=== PATIENT | female | born 2000 | race Hispanic/Latino ===

== ENCOUNTER 2022-10-18 08:07 | Outpatient (CLI) | payer OTHER | END 2022-10-18 08:08 | disposition home or self-care (01) | LOC: CSHLAB 08:07 | PROVIDERS: ATTEND Obstetrics & Gynecology | DX: Z01.812 Encounter for preprocedural laboratory examination (principal); N90.60 Unspecified hypertrophy of vulva | CPT/HCPCS: 84703; 85027; 86850; 86900; 86901 ==

== ENCOUNTER 2022-10-19 10:33 | Day surgery (SDC) | payer OTHER ==
[2022-10-17 15:26] VITALS: BMI 35.6
[2022-10-18 09:39] LABS: Hemoglobin 12.2 g/dL (12.0-15.5); Mean Corpuscular Hemoglobin 26.1 pg (27.0-33.0); Mean Corpuscular Volume 84.4 fl (81.6-98.3); Mean Platelet Volume 12.4 fl (7.4-10.4); Platelet Count 315 10x3/uL (150-450); RBC Distribution Width 14.3 % (11.5-14.5); Red Blood Cell (RBC) Count 4.67 10x6/uL (3.90-5.03); White Blood Cell (WBC) Count 10.1 10x3/uL (3.5-10.5)
[2022-10-18 09:57] LABS: BHCG - Serum Negative (NEGATIVE); Pregs Control Background? CLEAR/WHITE (CLR/WHITE); Pregs Control Bar Appear? YES (CONTROL BAR)
[2022-10-19] MEDS ORDERED: Gabapentin 300 MG CAP ONE (11:06)
[2022-10-19] MEDS ORDERED: Famotidine/PF 20 mg/2ml Vial ONE (11:06)
[2022-10-19] MEDS ORDERED: CeleCOXIB 100 MG CAP ONE (11:06)
[2022-10-19] MEDS ORDERED: Bupivacaine HCl 0.5%/Epinephrine 1:200,000/PF 30 ml Vial ONE (12:29)
[2022-10-19] MEDS ORDERED: Lidocaine 1% w/Epinephrine 1:100K 30 ML VIAL ONE (12:30)
[2022-10-19] MEDS ORDERED: CEFAZOLIN 2 GM VIAL ONE (12:53)
[2022-10-19] MEDS ORDERED: Fentanyl 100 MCG/2 ML VIAL ONE (13:16)
[2022-10-19] MEDS ORDERED: PROPOFOL 20 ML ONE (13:16)
[2022-10-19] MEDS ORDERED: Lidocaine 1% PF 5 ML VIAL ONE (13:16)
== END 2022-10-19 15:35 | disposition home or self-care (01) ==
LOC: CSHSDC 10:33
PROVIDERS: ATTEND Obstetrics & Gynecology
PROC: 0UTMXZZ Resection of Vulva, External Approach (ICD-10-PCS; principal; 2022-10-19)
DX: N90.60 Unspecified hypertrophy of vulva (principal)
CPT/HCPCS: 84703; 85027; 86850; 86900; 86901; J2704; J3010; S0028